=== PATIENT | male | born 1975 | race American Indian/Alaskan Native ===

== ENCOUNTER 2018-01-19 13:33 | Inpatient (IN) | payer OTHER ==
--- NOTE | 2018-01-19 16:25 | Emergency Department Report ---
Jeniffer Doc - Documentation Documentation: Patient is a 42-year-old gentleman who is presenting with dizziness. Patient states he was at his daughter's school and it just ate lunch and was asked to sign some papers patient acutely became very dizzy if else as though he was spinning. This lasted for several minutes. Patient states it resolved spontaneously however he now has UNSTEADY FEELING AND FEELS OFF BALANCE. PATIENT DENIES ANY ARM OR LEG WEAKNESS OR SENSORY CHANGE. PATIENT HAS NOT FALLEN. PATIENT STATES HE HAS SOME MILD POSTERIOR HEAD DISCOMFORT THAT STARTED AROUND THE TIME THAT THE DIZZINESS BEGAN. PATIENT DENIES ANY NAUSEA VOMITING DIARRHEA. PATIENT HAS NO HISTORY OF HYPERTENSION OR DIABETES. PATIENT WILL BE MOVED TO THE MAIN TREATMENT AREA FOR WORKUP OF POSSIBLE STROKE. - Level of Consciousness 1a. Level of Consciousness: alert - LOC Questions 1b. LOC Questions: answers correctly - LOC Command 1c. LOC Commands: performs tasks correctly - Best Gaze 2. Best Gaze: normal - Visual 3. Visual: no visual loss - Facial Palsy 4. Facial Palsy: normal symmetrical movement - Motor Arm 5b. Motor Arm Right: no drift 5a. Motor Arm Left: no drift - Motor Leg 6a. Motor Leg Left: no drift 6b. Motor Leg Right: no drift - Limb Ataxia 7. Limb Ataxia: absent - Sensory 8. Sensory: normal - Best Language 9. Best Language: no aphasia - Dysarthria 10. Dysarthria: normal - Extinction and Inattention 11. Extinction/Inattention: no abnormality - Scoring Total Score: 0 Stroke Severity: No Stroke Symptoms
[2018-01-19 16:47] LABS: Basophils % (Auto) 0.6 % (0.0-1.8); Eosinophils % (Auto) 0.2 % (0.0-4.3); Hematocrit 43.2 % (35.5-45.6); Lymphocytes # (Auto) 0.5 K/mm3 (1.2-5.4); Lymphocytes % (Auto) 10.7 % (13.4-35.0); Mean Corpuscular HGB Conc 32 % (32-34); Mean Corpuscular Hemoglobin 29 pg (28-32); Mean Corpuscular Volume 91 fl (84-94); Monocytes # (Auto) 0.4 K/mm3 (0.0-0.8); Monocytes % (Auto) 7.9 % (0.0-7.3); Platelet Count 180 K/mm3 (140-440); Red Blood Count 4.76 M/mm3 (3.65-5.03); Red Cell Distribution Width 12.7 % (13.2-15.2)
[2018-01-19 16:52] LABS: INR 0.99 (0.87-1.13)
--- NOTE | 2018-01-19 16:52 | Cat Scan Report ---
FINAL REPORT EXAM: CT HEAD/BRAIN WO CON HISTORY: Stroke symptoms TECHNIQUE: Noncontrast CT axial images of the brain. PRIORS: None. FINDINGS: No parenchymal mass, mass effect, hemorrhage, midline shift or hydrocephalus. No evidence of acute cortical infarct. No abnormal, extra-axial fluid or air collection. Very mild, patchy low density in the periventricular white matter of bifrontal regions is nonspecific, but may relate to chronic small vessel ischemic change. Osseous calvarium grossly intact. IMPRESSION: 1. Chronic ischemic changes suspected. Please note that MRI is a far more sensitive modality in the evaluation of acute cerebral ischemia, and followup may be warranted. 2. No other acute intracranial findings. Omer air support operations operator reported results to Shar on 19 January 2018 at approximately 1643 hours EST.
[2018-01-19 16:53] LABS: Partial Thromboplastin Time 27.4 Sec. (24.2-36.6); Thrombin Time 20.6 Sec. (15.1-19.6)
[2018-01-19 16:59] LABS: Creatine Kinase MB 1.9 ng/mL (0.0-4.0)
[2018-01-19 17:02] LABS: Alanine Aminotransferase 11 units/L (7-56); Albumin 4.4 g/dL (3.9-5); BUN/Creatinine Ratio 9; Blood Urea Nitrogen 8 mg/dL (9-20); Calcium 9.1 mg/dL (8.4-10.2); Hemolysis Index 7
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
--- NOTE | 2018-01-19 17:53 | History and Physical Report ---
History of Present Illness Chief complaint: I felt dizzy and weak History of present illness: 42 YO Male with no PMH presents to ED for evaluation. Pt states that he experienced acute onset of dizziness, and feeling like the room was spinning, and nausea. Pt seen and evaluated in ED and found to have symptoms consistent with acute CVA. A code stroke was called. Teleneurology consulted. Pt found to be outside therapeutic window for TPA. Pt denies headache, neck pain, chest pain , abdominal pain, shortness of breath. PT admitted to telemetry and treated IA stroke protocol. Past History Past Medical History: No medical history Past Surgical History: Other (neck surgery) Social history: , lives with family Family history: hypertension Medications and Allergies Allergies Allergy/AdvReac Type Severity Reaction Status Date / Time No Known Allergies Allergy Verified 01/19/18 13:42 Home Medications Medication Instructions Recorded Confirmed Last Taken Type No Known Home Medications [No 01/19/18 01/19/18 Unknown History Reported Home Medications] Review of Systems Constitutional: no weight loss, no weight gain, no fever, no chills Ears, nose, mouth and throat: no ear pain, no ear discharge, no tinnitis, no decreased hearing, no nose pain, no nasal congestion, no nasal discharge Cardiovascular: no chest pain, no orthopnea, no palpitations, no rapid/ irregular heart beat, no edema, no syncope Respiratory: no cough, no cough with sputum, no excessive sputum, no hemoptysis , no shortness of breath Gastrointestinal: no abdominal pain, no nausea, no vomiting, no diarrhea Genitourinary Male: no hematuria, no flank pain, no discharge, no urinary frequency, no urinary hesitancy, no nocturia Rectal: no pain, no incontinence, no bleeding Musculoskeletal: no neck stiffness, no neck pain, no shooting arm pain, no arm numbness/tingling, no low back pain, no shooting leg pain Integumentary: no rash, no pruritis, no redness, no sores, no wounds, no jaundice Neurological: weakness, no parathesias, no numbness, no tingling, no seizures, no syncope Psychiatric: no anxiety, no memory loss, no change in sleep habits, no sleep disturbances, no insomnia Endocrine: no cold intolerance, no heat intolerance, no polyphagia, no excessive thirst, no polydipsia, no polyuria, no nocturia Hematologic/Lymphatic: no easy bruising, no easy bleeding, no lymphadenopathy, no lymphedema Allergic/Immunologic: no urticaria, no allergic rhinitis, no wheezing Exam - Constitutional Vitals: Temp Pulse Resp BP Pulse Ox 98.7 F 73 20 153/101 100 01/19/18 17:47 01/19/18 17:47 01/19/18 17:47 01/19/18 17:47 01/19/18 17:47 General appearance: Present: no acute distress, well-nourished - EENT Eyes: Present: PERRL ENT: hearing intact, clear oral mucosa - Neck Neck: Present: supple, normal ROM - Respiratory Respiratory effort: normal Respiratory: bilateral: CTA - Cardiovascular Heart Sounds: Present: S1 & S2. Absent: rub, click - Extremities Extremities: pulses symmetrical, No edema Peripheral Pulses: within normal limits - Abdominal General gastrointestinal: Present: soft, non-tender, non-distended, normal bowel sounds Male genitourinary: Present: normal - Integumentary Integumentary: Present: clear, warm, dry - Musculoskeletal Musculoskeletal: gait normal, strength equal bilaterally - Psychiatric Psychiatric: appropriate mood/affect, intact judgment & insight - Neurologic Neurologic: CNII-XII intact, moves all extremities Results - Labs CBC & Chem 7: 01/19/18 16:29 01/19/18 16:29 Labs: Abnormal lab results 01/19/18 01/19/18 01/19/18 Range/Units 16:29 16:29 16:29 RDW 12.7 L (13.2-15.2) % Lymph % (Auto) 10.7 L (13.4-35.0) % [place] % (Auto) 7.9 H (0.0-7.3) % Lymph # 0.5 L (1.2-5.4) K/mm3 Seg Neutrophils % 80.6 H (40.0-70.0) % Thrombin Time 20.6 H (15.1-19.6) Sec. BUN 8 L (9-20) mg/dL Assessment and Plan - Patient Problems (1) CVA (cerebral vascular accident) Current Visit: Yes Status: Acute Qualifiers: Laterality of affected vessel: unspecified Plan to address problem: Stroke Protocol: CT Head, MRI Brain, MRA Brain, Echo, carotid doppler, antiplatelet therpay, neuro checks, lipid panel (2) DVT prophylaxis Current Visit: Yes Status: Acute Plan to address problem: SCD to BLE while in bed.
[2018-01-19] MEDS ORDERED: PHENERGAN PR PRN (17:54)
[2018-01-19] MEDS ORDERED: TYLENOL PO PRN (17:54)
[2018-01-19] MEDS ORDERED: REGLAN PO PRN (17:54)
[2018-01-19] MEDS ORDERED: DULCOLAX PR PRN (17:54)
[2018-01-19] MEDS ORDERED: ZOFRAN IV PRN (17:54)
[2018-01-19] MEDS ORDERED: SODIUM CHLORIDE FLUSH SYRINGE 10 ML IV PRN (17:54)
[2018-01-19] MEDS ORDERED: MILK OF MAGNESIA PO PRN (17:54)
[2018-01-19] MEDS ORDERED: PROVENTIL IH PRN (17:54)
[2018-01-19] MEDS: PEPCID PO SCH (22:58)
[2018-01-20 06:39] LABS: Chol/HDL Ratio 2.76 %
[2018-01-20] MEDS: PEPCID PO SCH ×2 (08:56→21:17)
[2018-01-20] MEDS ORDERED: ASPIRIN PO SCH (10:00)
--- NOTE | 2018-01-20 11:40 | Magnetic Resonance Report ---
MRA HEAD WITHOUT CONTRAST INDICATION: Stroke. COMPARISON: None similar. FINDINGS: MRA of the head performed without intravenous contrast and demonstrates no evidence of flow-limiting stenosis, occlusion or vascular malformation. Dominant left vertebral artery. Please note that detection of aneurysms less than 5 mm is limited on this exam. CONCLUSION: Normal study of the [place]. Thank you for the opportunity to participate in this patient's care.
--- NOTE | 2018-01-20 11:41 | Magnetic Resonance Report ---
MRI BRAIN WITHOUT CONTRAST INDICATION: Stroke. COMPARISON: Head CT from yesterday and 04/19/[address] FINDINGS: Noncontrast multiplanar and multisequence MRI of the brain demonstrates normal ventricles and sulci without acute infarct, hemorrhage, mass effect or midline shift. Mild periventricular and few white matter FLAIR and T2 weighted hyperintensities. No abnormal extra-axial masses or fluid collections. Normal major intracranial vascular flow voids. Normal posterior fossa structures with symmetric seventh and eighth nerve complexes. Symmetric, grossly unremarkable eye globes. Clear imaged paranasal sinuses and mastoid air cells. Normal intracranial midline appearance. Cerebellar tonsils extend approximately 2 mm below the foramen magnum, not strictly meeting criteria for Chiari 1 malformation. Dens/craniocervical articulation though not well seen with some susceptibility artifact from posterior fusion hardware (seen on 01/19/[address] school services officer) coursing through the region. Upper cervical cord also noted somewhat draping dorsally over it as on sagittal series 3, image 12, though similar to April 2007 CT appearance in this patient with possibly a type II old, displaced, odontoid fracture with interval stabilization. Upper cervical spondylosis also again seen. CONCLUSION: No acute intracranial MRI abnormality, though upper cervical spine deformity and postsurgical changes for old odontoid stabilized fracture again noted, as described. Please also correlate clinically. Thank you for the opportunity to participate in this patient's care.
--- NOTE | 2018-01-20 15:46 | Discharge Summary ---
Providers - Providers Date of Admission: 01/19/18 17:54 Date of discharge: 01/20/18 Attending physician: ELMER MCKENZIE 01/19/18 17:54 Occupational Therapy Evaluate and Treat [CONS] Routine Comment: Reason For Exam: Neuro deficits Physical Therapy Evaluation and Treat [CONS] Routine Comment: Reason For Exam: Neuro deficits 01/19/18 17:56 Consult to Case Management [CONS] Urgent Services Needed at Discharge: Other Notified:: awaiting call back Additional Physician Instructions: Patient does not have insurance, please discuss insurance options with him while he is here in the hospital. Speech Therapy Evaluation and Treat [CONS] Routine Reason For Exam: swallow eval Primary care physician: STERILIZATION TECHNICIAN Hospitalization Condition: Good Disposition: DC-01 TO HOME OR SELFCARE Core Measure Documentation - Palliative Care Palliative Care/ Comfort Measures: Not Applicable - Core Measures Any of the following diagnoses?: stroke Exam - Constitutional Vitals: Temp Pulse Resp BP Pulse Ox 97.9 F 53 L 18 123/83 100 01/20/18 11:56 01/20/18 11:56 01/20/18 11:56 01/20/18 11:56 01/20/18 11:56 Plan Activity: no restrictions Diet: low fat, low cholesterol, low salt Follow up with: PRIMARY CARE, [Primary Care Provider] - 3-5 Days Prescriptions: Aspirin EC [Aspirin Enteric Coated TAB] 325 mg PO QDAY #30 tablet. AtorvaSTATin [Lipitor] 40 mg PO QHS #30 tablet
[2018-01-20 22:06] VITALS: BP 116/77
== END 2018-01-20 23:04 | disposition home or self-care (01) | DRG 69 ==
LOC: ED 13:33 → 4A 17:54
PROVIDERS: ADMIT Internal Medicine; ATTEND Internal Medicine
DX: G45.9 Transient cerebral ischemic attack, unspecified (principal); Z82.49 Family history of ischemic heart disease and other diseases of the circulatory system
CPT/HCPCS: 36415; 70450; 70544; 70551; 80053; 80061; 80320; 82550; 82553; 82962; 84484; 85025; 85610; 85670; 85730; 93005; 93010; 93306; 93880; A9270-GY; G0480

== ENCOUNTER 2019-04-15 10:33 | Emergency (ER) | payer SELFPAY ==
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
[2019-04-15] MEDS ORDERED: KETOROLAC 30 MG/1 ML INJ IM ONE (14:11)
[2019-04-15] MEDS ORDERED: CYCLOBENZAPRINE 10 MG TAB PO ONE (14:11)
[2019-04-15 14:51] VITALS: BP 140/90
== END 2019-04-15 14:51 | disposition home or self-care (01) ==
LOC: ED 10:33
DX: M54.2 Cervicalgia (principal); M79.605 Pain in left leg; M54.5 Low back pain; G89.29 Other chronic pain; Z98.890 Other specified postprocedural states; Z79.899 Other long term (current) drug therapy
CPT/HCPCS: 96372; 99282; J1885